=== PATIENT | male | born 1975 | race Caucasian/White ===

== ENCOUNTER 2021-02-22 11:50 | Emergency (ER) | payer OTHER ==
[~2021-02-22] VITALS: Ht 188 cm; Wt 113.0 kg
[2021-02-22 12:23] VITALS: BP 135/107
--- NOTE | 2021-02-22 12:25 | PHYS DOC ---
Adult General Chief Complaint Chief Complaint: Neck Pain HPI HPI Patient is a 45-year-old male presenting for neck pain. Reports onset was 1 hour ago while sitting in a meeting. Reports he started having neck pain that feels deep to left ear and radiated down to his clavicle/sternum area. Reports his head became full and he became anxious developing substernal tightness, lightheadedness and change in overall color. Rest made better, turning his head to the right made worse. Pain is dull in nature and has improved almost totally since onset. Patient reports he has a chiropractor appointment scheduled today at noon and given his symptoms, after he had calm down from initial onset of pain in symptoms, he called the chiropractor who is concerned about potential dissection prompting him to come in for evaluation. Patient reports driving here and since being in the ER his been asymptomatic. Reports he has been afraid to turn his neck to the right. Admits he has had chronic neck problems for which he has had unremarkable cervical spine x-rays approximately 2 weeks ago and is pending an outpatient MRI for chronic tinnitus in addition to his chronic neck pain. Denies any other significant medical events, takes [id number] vitamins otherwise no significant medications. 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 See HPI for pertinent positives and negative responses, other ford all other systems are negative, non-pertinent or non-contributory Physical Exam Physical Exam Constitutional: Well developed, well nourished, no acute distress, non-toxic appearance. Appears anxious and fidgety rocking back and forth on ER gurrodrigue HENT: Normocephalic, atraumatic, bilateral external ears normal, oropharynx irvin st, no oral exudates, nose normal. Eyes: PERRLA, EOMI, conjunctiva normal, no discharge. Neck: Normal range of motion, no tenderness, supple, no stridor. No meningeal signs or nuchal rigidity. Patient does have tight and ropey left SCM on palpation Cardiovascular: Heart rate regular, sinus rhythm, no murmurs rubs or gallops Lungs & Thorax: Bilateral breath sounds clear to auscultation Abdomen: Bowel sounds normal, soft, no tenderness, no masses, no pulsatile masses. Nonsurgical abdomen, no peritoneal signs Skin: Warm, dry, no erythema, no rash. Back: No tenderness, no CVA tenderness. Extremities: No tenderness, no cyanosis, no clubbing, ROM intact, no edema. Neurologic: Alert and oriented X 3, grossly normal motor & sensory function, no focal deficits noted. Psychologic: Anxious affect and mood Current Patient Data Vital Signs Vital Signs Date Time Temp Pulse Resp B/P (MAP) Pulse Ox O2 Delivery O2 Flow Rate FiO2 02/22/21 12:23 97.2 78 16 135/107 (116) 98 Vital Signs Date Time Temp Pulse Resp B/P (MAP) Pulse Ox O2 Delivery O2 Flow Rate FiO2 02/22/21 12:23 97.2 78 16 135/107 (116) 98 EKG EKG EKG ordered and interpreted by myself at 1258 hrs. is sinus rhythm at 74 bpm, unremarkable intervals, no axis deviation, no acute ischemic findings, no STEMI Radiology/Procedures Radiology/Procedures [] Heart Score C/O Chest Pain: No HEART Score for Chest Pain: HEART Score for Chest Pain Response (Comments) Value History Slighlty/Non-Suspicious 0 ECG Normal 0 Age < 45 0 Risk Factors No Risk Factors 0 Total 0 Risk Factors: Risk Factors: DM, Current or recent (<one month) smoker, HTN, HLP, family history of CAD, obesity. Risk Scores: Risk Factors: DM, Current or recent (<one month) smoker, HTN, HLP, family history of CAD, obesity. Course & Med Decision Making Course & Med Decision Making ABCs unremarkable HPI and physical examination nonconcerning for any emergent or surgical issues. [id number] glucose and EKG unremarkable Patient extremely anxious, he was sent here by chiropractor for potential dissection. His examination is not consistent with this, he is extremely anxious ever since ER arrival but otherwise asymptomatic I discussed little indication for further diagnostic work-up but for peace of mind I did offer imaging modalities such as CT head and CTA head and neck, patient ultimately deferred as he was asymptomatic I offered Toradol shot for pain for which patient received. He was extremely anxious after receiving this fearful of a potential drug allergy as he never takes any medications. He is questioning whether this was administered intravenous or not as he has read conspiracies about the Covid vaccine I spent greater than 15 minutes reassuring patient about current condition. I did disclose this might be an acute presentation of more concerning pathology but given physical examination in fact that he has been asymptomatic since ER arrival and it has been greater than 2 hours since neck pain, low risk for dissection Patient monitored after Toradol administration, no obvious allergic reaction. I disclosed to administer this medication intravenously as well so I have little concern of RN administration of this medication He is extremely anxious. He was in the hallway and observed fidgeting and rocking back and forth at times extremely anxious. I disclosed that this is likely the root cause of majority of his presenting symptoms today and that he should follow-up with PCP on this Strict return precautions discussed with understanding verbalized by patient, all questions and concerns addressed prior to ER departure Dragon Disclaimer Dragon Disclaimer This electronic medical record was generated, in whole or in part, using a voice recognition dictation system. Departure Departure: Impression: Primary Impression: Neck pain on left side Disposition: HOME / SELF CARE / HOMELESS Condition: STABLE Referrals: TROY MATHIS (PCP) Additional Instructions: You were seen for left-sided neck pain in addition to other issues. Your vital signs and comprehensive physical exam was nonconcerning for any emergent or surgical issues. You should continue to seek outpatient follow-up with primary care provider, chiropractor and as discussed avoid any aggressive cervical manipulation in favor of soft tissue techniques. Please contact your primary care provider regarding today's visit and need for close outpatient follow-up for repeat evaluation. I recommend you ask for your MRI head and neck that are already scheduled to be bumped up if possible. You should return to the ED if you develop worsening pain, fever, numbness, tingling, weakness, or any other new or concerning symptoms. INDERJIT LAST DO Feb 22, 2021 12:25
[2021-02-22] MEDS ORDERED: KETOROLAC 60 MG/2 ML VIAL. IM ONE (13:15)
--- NOTE | 2021-02-22 13:43 | EKG ---
[address] [address] Test Date: 2021-02-22 Test Time: 12:54:58 Pat Name: ANURADHA YANG Department: Room: Gender: M Battery Assembler: JAM : 1975 Requested By: INDERJIT LAST Order Number: [id number] Reading MD: Higinio Garcia Measurements Intervals [place] Rate: 74 P: 3 AK: 160 QRS: 27 QRSD: 80 T: 18 QT: 340 QTc: 378 Interpretive Statements SINUS RHYTHM Electronically Signed On 02-22-2021 14:01:14 JAZZ MUSICIAN by Higinio Garcia
== END 2021-02-22 13:49 | disposition home or self-care (01) ==
LOC: ER 11:50
DX: M54.2 Cervicalgia (principal); R07.2 Precordial pain; R42 Dizziness and giddiness
CPT/HCPCS: 82947; 93005; 96372; 99284; J1885